=== PATIENT | male | born 1975 | race African-American/Black ===

== ENCOUNTER 2017-03-16 11:22 | Emergency (ER) | payer BC ==
[~2017-03-16] VITALS: Ht 195.6 cm; Wt 111.4 kg
[2017-03-16 11:25] VITALS: BP 127/67; TEMP 97.5
[2017-03-16] MEDS ORDERED: ZOFRAN8 MG PO (11:50)
[2017-03-16] MEDS ORDERED: ULTRAM 50MG TAB50 MG PO (11:50)
[2017-03-16 12:18] LABS: ALBUMIN 4.8 gm/dL (3.5-5.0); BILIRUBIN,TOTAL 1.4 mg/dL (0.0-1.0); CALCIUM 9.6 mg/dL (8.4-10.2); CREATININE, serum 0.98 mg/dL (0.66-1.25); POTASSIUM 4.1 mmol/L (3.4-5.0); TOTAL PROTEIN 8.5 gm/dL (6.4-8.2)
[2017-03-16 12:57] VITALS: PULSE 68
== END 2017-03-16 12:59 | disposition home or self-care (01) ==
LOC: COL.ER 11:22
PROVIDERS: Emergency Medicine
DX: E86.9 Volume depletion, unspecified (principal); R10.13 Epigastric pain; F17.210 Nicotine dependence, cigarettes, uncomplicated
CPT/HCPCS: J1170; J2405; J2765; J7030